=== PATIENT | female | born 1980 | race Two or more races ===

== ENCOUNTER 2017-05-28 16:53 | Emergency (ER) | payer OTHER ==
[2017-05-28 17:06] VITALS: BP 129/65; PULSE 95; TEMP 98; BMI 26.6
[2017-05-28] MEDS ORDERED: IBUPROFEN 400 MG TABLET (FP) PO ONE ×2 (17:45→18:13)
--- NOTE | 2017-05-28 17:48 | PDOC ---
History of Present Illness - General Chief Complaint: Injury Stated Complaint: INJURY Foot Time Seen by Provider: 05/28/17 17:24 - History of Present Illness Initial Comments: 05/28/17 17:46 This is a 36-year-old female without significant past medical history of presents to the emergency department with left fourth toe pain status post trauma. Patient states she was walking barefoot in her house when she miss stepped and accidentally kicked the corner of a wall. The fourth toe on her left foot and the third toe on her left foot worse blood by the corner. She states the pain is progressively on worse over the past 2 days. She denies any fevers, chills, chest pain, shortness of breath, nausea, vomiting, abdominal pain. PMD: Raquel PMH: Denies PSH: Denies NKDA = Past History - Past Medical History Allergies/Adverse Reactions: Allergies Allergy/AdvReac Type Severity Reaction Status Date / Time No Known Allergies Allergy Verified 05/28/17 17:06 Home Medications: Ambulatory Orders No Home Medications 0 dose .ROUTE UTDICT 09/07/12 COPD: No - Reproductive History (#): 7 Para: 5 Spontaneous : 2 - Suicide/Smoking/Psychosocial Hx Smoking Status: No Smoking History: Never smoked Number of Cigarettes Smoked Daily: 0 Information on smoking cessation initiated: No Hx Alcohol Use: No Drug/Substance Use Hx: No Substance Use Type: None Review of Systems - Review of Systems Able to Perform ROS?: Yes Is the patient limited Israeli proficient: No Constitutional: No: Symptoms Reported HEENTM: No: Symptoms Reported Respiratory: No: Symptoms reported Cardiac (ROS): No: Symptoms Reported ABD/GI: No: Symptoms Reported : No: Symptoms Reported Musculoskeletal: Yes: See HPI Integumentary: No: Symptoms Reported Neurological: No: Symptoms reported Endocrine: No: Symptoms Reported *Physical Exam - Vital Signs Last Vital Signs Temp Pulse Resp BP Pulse Ox 98 F 95 H 18 129/65 100 05/28/17 17:05 05/28/17 17:05 05/28/17 17:05 05/28/17 17:05 05/28/17 17:05 - Physical Exam General Appearance: Yes: Appropriately Dressed. No: Apparent Distress Extremity: positive: Swelling (DIP on the fourth digit of the foot), Other ( ecchymosis noted to the DIP of the fourth digit of left foot) Medical Decision Making - Medical Decision Making 05/28/17 17:46 A/P: This is a 36-year-old female without significant past medical history of presents to the emergency department with left fourth toe pain status post trauma. Patient states she was walking barefoot in her house when she miss stepped and accidentally kicked the corner of a wall. The fourth toe on her left foot and the third toe on her left foot worse blood by the corner. She states the pain is progressively on worse over the past 2 days. She denies any fevers, chills, chest pain, shortness of breath, nausea, vomiting, abdominal pain. Swelling and ecchymosis to the DIP of the fourth digit of the left foot. No erythema noted. Patient is able to flex and extend the digit against resistance. Tenderness is noted to the DIP. Exam of the rest of the foot is within normal limits. Differential diagnosis includes joint effusion versus fracture I will obtain a urine test, x-ray of the left foot, and give 800 mg of Motrin for pain. I will reevaluate the patient after all testing and medications been completed. 05/28/17 18:56 X-ray the foot as read by me there is a nondisplaced linear fracture of the proximal phalangeal the fourth digit on the left foot. Given the fracture is nondisplaced I will polina tape the 4 to provide a hard sole shoe and gave referral for podiatry for follow-up. *DC/Admit/Observation/Transfer Diagnosis at time of Disposition: Fracture of toe of left foot Qualifiers: Encounter type: initial encounter Toe: lesser toe Fracture type: closed Phalanx : proximal Fracture alignment: nondisplaced Qualified Code(s): S92.515A - Nondisplaced fracture of proximal phalanx of left lesser toe(s), initial encounter for closed fracture - Discharge Dispostion Disposition: HOME Condition at time of disposition: Stable Admit: No - Referrals Referrals: Deepika García MD [Primary Care Provider] - Scar Mccord MD [Staff Physician] - - Patient Instructions Additional Instructions: Wear hard sole shoe to prevent bending of the affected toe. Take Tylenol or Motrin as needed for pain. Follow manufacturers instructions for appropriate dosage. You've been given a referral for a renal technician. Call the renal technician next week for further evaluation if pain is not improving. Return to emergency department for discoloration of the toe, numbness or tingling of the toe, increased pain, or any other concerns. Thank you very much for choosing us to provide your emergent healthcare needs. - Post Discharge Activity
== END 2017-05-28 19:13 | disposition home or self-care (01) ==
LOC: JERFT 16:53
DX: S92.592A Other fracture of left lesser toe(s), initial encounter for closed fracture (principal); W22.01XA Walked into wall, initial encounter; Y93.01 Activity, walking, marching and hiking; Y92.038 Other place in apartment as the place of occurrence of the external cause
CPT/HCPCS: 73630-TC-LT; 84703; 99281-25